=== PATIENT | male | born 1955 | race Caucasian/White ===

== ENCOUNTER 2022-02-21 08:43 | Emergency (ER) | payer MEDICARE, BC ==
[~2022-02-21] VITALS: Ht 185.4 cm; Wt 90.7 kg
[2022-02-21] MEDS ORDERED: LOSARTAN POTASS50 MG PO (08:56)
[2022-02-21] MEDS ORDERED: HYDROCHLOROTH12.5 MG PO (08:57)
[2022-02-21] MEDS ORDERED: LIDOCAINE PAIN1 EACH TD (11:21)
[2022-02-21] MEDS ORDERED: HYDROCODON-ACE1 EA10 PO (11:22)
== END 2022-02-21 11:37 | disposition home or self-care (01) ==
LOC: ED 08:43
DX: S39.012A Strain of muscle, fascia and tendon of lower back, initial encounter (principal); X58.XXXA Exposure to other specified factors, initial encounter
CPT/HCPCS: 96372; 99283; A9270; J1100; J1885

== ENCOUNTER 2023-02-28 10:57 | Emergency (ER) | payer MEDICARE, BC ==
[~2023-02-28] VITALS: Ht 177.8 cm; Wt 95.2 kg
--- OUTSIDE RECORDS SUMMARY | ~2023-02-28 | XMS | Continuity of Care Document ---
Demographics + + + | Address | [address] | | | [place] [address] | + + + | Preferred Language | Unknown | + + + | Marital Status | | + + + | Denominational Affiliation | Unknown | + + + | Race | White | + + + | Ethnic Group | Not or | + + + Author + + + | Author | [facility] | + + + | Organization | [facility] | + + + | Address | [address] | | | [place], [place] [address] | + + + | Phone | | + + + Care Team Providers + + + + | Care Gallery Director Name | Role | Phone | + + + + Unavailable | Unavailable | + + + + Unavailable | Unavailable | + + + + Allergies No information. Encounters No information. Functional Status No information. Immunizations No information. Medications + + + + | date | description | facility | + + + + | 2022-02-21 00:00 | Lidocaine | [facility] | + + + + | 2022-02-25 00:00 | HYDROCHLOROTHIAZIDE | [facility] | + + + + | 2022-02-21 00:00 | HYDROCODONE | [facility] | | | BIT/ACETAMINOPHEN | | + + + + | 2022-02-25 00:00 | LOSARTAN POTASSIUM | [facility] | + + + + Problems + + + + | date | description | facility | + + + + | 2022-02-21 00:00 | Strain of lumbar region | [facility] | + + + + Procedures No information. Results/Labs No information. Social History No information. Vital Signs + + + +---------+ | date | measurement | value | units | + + + +---------+ | 2022-02-21 00:00 | BMI | 26.4 | kg/m2 | + + + +---------+ | 2022-02-21 00:00 | BP_diastolic | 105 | mmHg | + + + +---------+ | 2022-02-21 00:00 | BP_systolic | 140 | mmHg | + + + +---------+ | 2022-02-21 00:00 | heart_rate | 68 | /min | + + + +---------+ | 2022-02-21 00:00 | height_metric | 185.42 | cm | + + + +---------+ | 2022-02-21 00:00 | height_standard | 73 | in | + + + +---------+ | 2022-02-21 00:00 | o2_saturation | 100 | % | + + + +---------+ | 2022-02-21 00:00 | respiration_rate | 16 | /min | + + + +---------+ | 2022-02-21 00:00 | temperature_metric | 36.56 | C | | | | | | + + + +---------+ | 2022-02-21 00:00 | | 97.8 | F | | | temperature_standar | | | | | d | | | + + + +---------+ | 2022-02-21 00:00 | weight_metric | 90.72 | kg | + + + +---------+ | 2022-02-21 00:00 | weight_standard | 200 | lb | + + + +---------+"
--- OUTSIDE RECORDS SUMMARY | ~2023-02-28 | XMS | Continuity of Care Document ---
Demographics + + + | Address | [address] | | | [place] [address] | + + + | Preferred Language | Unknown | + + + | Marital Status | | + + + | Jewish Affiliation | Unknown | + + + | Race | White | + + + | Ethnic Group | Not or | + + + Author + + + | Author | [facility] | + + + | Organization | [facility] | + + + | Address | [address] | | | [place], [place] [address] | + + + | Phone | | + + + Care Team Providers + + + + | Care V Belt Finisher Name | Role | Phone | + + + + Unavailable | Unavailable | + + + + Unavailable | Unavailable | + + + + Allergies No information. Encounters No information. Functional Status No information. Immunizations No information. Medications + + + + | date | description | facility | + + + + | 2022-02-21 00:00 | Lidocaine | [facility] | + + + + | 2022-02-25 00:00 | HYDROCHLOROTHIAZIDE | [facility] | + + + + | 2022-02-21 00:00 | HYDROCODONE | [facility] | | | BIT/ACETAMINOPHEN | | + + + + | 2022-02-25 00:00 | LOSARTAN POTASSIUM | [facility] | + + + + Problems + + + + | date | description | facility | + + + + | 2022-02-21 00:00 | Strain of lumbar region | [facility] | + + + + Procedures No [...]
[~2023-02-28 10:57] MED LIST: HYDROCHLOROTH12.5 MG PO; HYDROCODON-ACE1 EA10 PO; LIDOCAINE PAIN1 EACH TD; LOSARTAN POTASS50 MG PO
[2023-02-28 12:13] VITALS: BP 129/71
== END 2023-02-28 12:14 | disposition home or self-care (01) ==
LOC: ED 10:57
DX: S61.111A Laceration without foreign body of right thumb with damage to nail, initial encounter (principal); Z79.899 Other long term (current) drug therapy; W27.4XXA Contact with kitchen utensil, initial encounter
CPT/HCPCS: 12002; 99282-25